=== PATIENT | female | born 1985 | race Caucasian/White ===

== ENCOUNTER → 2021-03-09 17:24 | Outpatient (CLI) | payer BC, SELFPAY ==
[2021-03-09 18:18] LABS: Add Manual Diff / Slide Review NO; Basophils Absolute Auto 0 /uL (0-100); Basophils Percent Auto 0.4 % (0-2); Eosinophils Absolute Auto 2400 /uL (0-450); Eosinophils Percent Auto 19.9 % (2-4); Hematocrit 39.4 % (36-46); Hemoglobin 13.4 g/dL (12.0-16.0); Lymphocytes Absolute Auto 3800 /uL (1100-4500); Lymphocytes Percent Auto 30.6 % (25-40); Mean Corpuscular Hemoglobin 30.9 PG (26-34); Mean Corpuscular Volume 90.8 fL (80-100); Monocytes Absolute Auto 600 /uL (0-900); Neutrophils Absolute Auto 5400 /uL (1500-7000); Neutrophils Percent Auto 44.1 % (50-75); Platelet Count 264 X10^3/uL (150-400); Red Blood Cell Count 4.34 X10^6/uL (4.0-5.2); Red Cell Distribution Width 12.8 % (11.6-14.8); White Blood Cell Count 12.3 X10^3/uL (4.5-11.0)
[2021-03-09 18:35] LABS: Alanine Aminotransferase 19 IU/L (<35); Albumin 4.3 g/dL (3.5-5.0); Albumin Globulin Ratio 1.3 (1.0-2.8); Alkaline Phosphatase 74 U/L (38-126); Aspartate Aminotransferase 33 IU/L (14-36); BUN Creatinine Ratio 19.5 (6-22); Bilirubin Total 0.2 mg/dL (0.2-1.3); Blood Urea Nitrogen 17 mg/dL (7-17); Calcium 9.2 mg/dL (8.4-10.2); Carbon Dioxide 28 mmol/L (22-32); Chloride 105 mmol/L (98-107); Estimated Glomerular Filt Rate > 60.0 mL/min (>60); Globulin 3.2 g/dL (1.7-4.1); Glucose 89 mg/dL (70-100); HEMOLYSIS < 15 (0-50); Potassium 3.7 mmol/L (3.4-5.1); Sodium 140 mmol/L (137-145); Total Protein 7.5 g/dL (6.3-8.2)
[2021-03-10 22:37] LABS: Deamidated Gliadin Ab IgA 4 units (0-19); Deamidated Gliadin Ab IgG 1 units (0-19); Immunoglobulin A,Qn 233 mg/dL (87-352); t-Transglutaminase IgA <2 U/mL (0-3)
== END ==
PROVIDERS: Family Provider Physician Assistant Medical; PCP Family Medicine; Referring Provider Family Medicine; Visit Provider Family Medicine
DX: J30.9 Allergic rhinitis, unspecified (principal); K58.9 Irritable bowel syndrome, unspecified
CPT/HCPCS: 36415; 80053; 82784; 83516; 84443; 85025

== ENCOUNTER → 2021-03-12 17:31 | Outpatient (CLI) | payer BC, SELFPAY ==
[2021-03-12 19:07] LABS: Vitamin B12 Reflex MMA if <400 869 pg/mL (239-931)
== END ==
PROVIDERS: Family Provider Physician Assistant Medical; PCP Family Medicine; Referring Provider Family Medicine; Visit Provider Family Medicine
DX: D72.10 Eosinophilia, unspecified (principal); K58.9 Irritable bowel syndrome, unspecified; R10.9 Unspecified abdominal pain
CPT/HCPCS: 36415; 82607

== ENCOUNTER → 2021-03-13 12:36 | Outpatient (CLI) | payer BC, SELFPAY | PROVIDERS: Family Provider Physician Assistant Medical; PCP Family Medicine; Referring Provider Family Medicine; Visit Provider Family Medicine | DX: D72.10 Eosinophilia, unspecified (principal); R19.7 Diarrhea, unspecified | CPT/HCPCS: 87177 ==

== ENCOUNTER → 2022-07-06 17:38 | Outpatient (CLI) | payer OTHER, SELFPAY ==
[2022-07-08 05:12] LABS: Hepatitis B Core AB w/Reflex Negative (Negative)
[2022-07-08 06:33] LABS: HSV 2 IGG AB < 0.91 index (0.00-0.90); HSV1IGG 6.91 index (0.00-0.90); RPR Screen Non Reactive (Non Reactive)
[2022-07-09 20:44] LABS: HIV 1 & 2 Ab/Ag 4th Gen Combo NEGATIVE (NEGATIVE); Hep C Virus Ab w/Reflex Quant NEGATIVE s/c (NEGATIVE); Hepatitis B Surface Antigen NEGATIVE s/c (NEGATIVE)
== END ==
PROVIDERS: Family Provider Physician Assistant Medical; PCP Registered Nurse Diabetes Educator; Referring Provider Registered Nurse Diabetes Educator; Visit Provider Registered Nurse Diabetes Educator
DX: Z20.2 Contact with and (suspected) exposure to infections with a predominantly sexual mode of transmission (principal)
CPT/HCPCS: 36415; 86592; 86695; 86696; 86704; 86803; 87340; 87389

== ENCOUNTER → 2022-11-18 11:09 | Outpatient (CLI) | payer OTHER, SELFPAY ==
[2022-11-18 16:01] LABS: Urine N gonorrhoeae NOT DETECTED
[2022-11-18 16:31] LABS: Urine Chlamydia NOT DETECTED
== END ==
PROVIDERS: Family Provider Physician Assistant Medical; PCP Registered Nurse Diabetes Educator; Visit Provider Nurse Practitioner Family
DX: R35.0 Frequency of micturition (principal); Z20.2 Contact with and (suspected) exposure to infections with a predominantly sexual mode of transmission
CPT/HCPCS: 87086; 87491; 87591

== ENCOUNTER → 2022-11-18 11:26 | Outpatient (CLI) | payer OTHER, SELFPAY ==
[2022-11-18 15:51] LABS: Hepatitis B Surface Antigen NEGATIVE s/c (NEGATIVE)
[2022-11-18 16:12] LABS: HIV 1 & 2 Ab/Ag 4th Gen Combo NEGATIVE (NEGATIVE); Hep C Virus Ab w/Reflex Quant NEGATIVE s/c (NEGATIVE)
[2022-11-19 06:04] LABS: RPR Screen Non Reactive (Non Reactive)
[2022-11-21 12:23] LABS: HSV 2 IGG AB < 0.91 index (0.00-0.90); HSV1IGG 6.11 index (0.00-0.90)
== END ==
PROVIDERS: Family Provider Physician Assistant Medical; PCP Registered Nurse Diabetes Educator; Referring Provider Nurse Practitioner Family; Visit Provider Nurse Practitioner Family
DX: R35.0 Frequency of micturition (principal); Z20.2 Contact with and (suspected) exposure to infections with a predominantly sexual mode of transmission
CPT/HCPCS: 36415; 86592; 86695; 86696; 86803; 87086; 87340; 87389; 87491; 87591

== ENCOUNTER → 2023-11-26 12:27 | Outpatient (CLI) | payer OTHER, SELFPAY ==
[2023-11-26 13:16] LABS: Add Manual Diff / Slide Review NO; Basophils Absolute Auto 100 /uL (0-100); Basophils Percent Auto 0.7 % (0-2); Eosinophils Absolute Auto 300 /uL (0-450); Eosinophils Percent Auto 3.4 % (2-4); Hematocrit 40.4 % (36-46); Hemoglobin 13.9 g/dL (12.0-16.0); Lymphocytes Absolute Auto 2900 /uL (1100-4500); Lymphocytes Percent Auto 32.7 % (25-40); Mean Corpuscular HGB Conc 34.3 % (30-36); Mean Corpuscular Hemoglobin 30.9 PG (26-34); Mean Corpuscular Volume 89.9 fL (80-100); Monocytes Absolute Auto 600 /uL (0-900); Monocytes Percent Auto 6.5 % (3-14); Neutrophils Absolute Auto 5000 /uL (1500-7000); Neutrophils Percent Auto 56.7 % (50-75); Platelet Count 284 X10^3/uL (150-400); Red Blood Cell Count 4.49 X10^6/uL (4.0-5.2); Red Cell Distribution Width 13.3 % (11.6-14.8); White Blood Cell Count 8.8 X10^3/uL (4.5-11.0)
[2023-11-26 13:38] LABS: HEMOLYSIS < 15 (0-50); Iron 109 ug/dL (37-170)
[2023-11-26 13:45] LABS: Alanine Aminotransferase 19 IU/L (<35); Albumin 4.4 g/dL (3.5-5.0); Albumin Globulin Ratio 1.3 (1.0-2.8); Alkaline Phosphatase 80 U/L (38-126); Aspartate Aminotransferase 29 IU/L (14-36); Bilirubin Total 0.4 mg/dL (0.2-1.3); Blood Urea Nitrogen 20 mg/dL (7-17); Calcium 9.3 mg/dL (8.4-10.2); Carbon Dioxide 28 mmol/L (22-32); Chloride 108 mmol/L (98-107); Estimated Glomerular Filt Rate > 60 mL/min (>60); Globulin 3.3 g/dL (1.7-4.1); Glucose 66 mg/dL (70-100); HEMOLYSIS < 15 (0-50); Potassium 4.1 mmol/L (3.4-5.1); Sodium 139 mmol/L (137-145); Total Protein 7.7 g/dL (6.3-8.2)
[2023-11-26 13:51] LABS: Percent Iron Saturation 41 % (15-50); Total Iron Binding Capacity 264 ug/dL (265-497); Transferrin 221 mg/dL (206-381)
[2023-11-26 14:10] LABS: TSH w/ Reflex to FT4 1.85 uIU/mL (0.47-4.68)
[2023-11-26 14:16] LABS: Ferritin 35 ng/mL (6-137)
[2023-11-26 14:32] LABS: Vitamin B12 903 pg/mL (239-931)
[2023-11-29 14:50] LABS: C difficie Toxins A and B, EIA Negative (Negative)
[2023-11-29 20:33] LABS: Lactoferrin, Fecal Quant <1.00 ug/mL(g) (0.00-7.24)
[2023-12-06 19:58] LABS: Pancreatic Elastase, Fecal 252 (>200)
== END ==
LOC: LAB 12:28
PROVIDERS: Family Provider Physician Assistant Medical; PCP Registered Nurse Diabetes Educator; Referring Provider Physician Assistant; Visit Provider Physician Assistant
DX: R19.7 Diarrhea, unspecified (principal); R14.0 Abdominal distension (gaseous); R53.83 Other fatigue; L65.9 Nonscarring hair loss, unspecified
CPT/HCPCS: 36415; 80053; 82607; 82656; 82728; 83540; 83550; 83631; 84443; 85025; 87324

== ENCOUNTER → 2024-01-11 16:16 | Outpatient (CLI) | payer OTHER, SELFPAY ==
--- NOTE | 2024-01-11 16:17 | DI.RAD.S_ITS ---
PROCEDURE: XR ANKLE LT MIN 3V INDICATIONS: ankle injury on 12/27 swelling pain lateral side TECHNIQUE: 3 views of the ankle were acquired. COMPARISON: None. FINDINGS: Bones: No acute fractures or dislocations. Ankle mortise is normally aligned. No suspicious bony lesions. Small plantar calcaneal enthesophyte. Soft tissues: Mild soft tissue edema over the lateral malleolus. Moderate tibiotalar effusion. IMPRESSION: No acute osseous abnormality. If there is continued clinical concern or persistent symptoms, repeat radiographs or cross-sectional imaging (e.g. CT, MRI) may be helpful for further evaluation. Approved by: Royer Cowan M.D. on 01/11/2024 at 20:09
== END ==
PROVIDERS: Family Provider Physician Assistant Medical; PCP Registered Nurse Diabetes Educator; Referring Provider Physician Assistant; Visit Provider Physician Assistant
DX: S93.402A Sprain of unspecified ligament of left ankle, initial encounter (principal); S99.912A Unspecified injury of left ankle, initial encounter; X58.XXXA Exposure to other specified factors, initial encounter
CPT/HCPCS: 73610